=== PATIENT | female | born 1980 | race Asian ===

== ENCOUNTER 2019-04-13 19:34 | Emergency (ER) | payer OTHER ==
[~2019-04-13] VITALS: Ht 162.6 cm; Wt 84.4 kg
[~2019-04-13 19:34] MED LIST: ACET-655 PO; ACET7.5T70 PO; ALPR0.5T24 PO; BD INSULIN0.5 MG/31 XX; FLUC150T PO; FLUT0.05 NAS; INSU100P SC; LANTUS SOLOSTAR SC; LANTUS100 MG/ML SC; LEVAQUIN500 MG OR; LISI5TAB10 PO; METO25TA4 OR; NOVOFINE32 GX6MM SC; NOVOLOG100 MG/ML SC; NYST100010 EX; ONE TOUCH ULTRA; ONE TOUCH ULTRA TEST; PEPCID40 MG PO; PRAVACHOL20 MG PO; TRIAMCINOLON0.51 TOP; [UNRECOGNIZED DRUG - SUPPLY]
[2019-04-13 19:44] VITALS: TEMP 98.6
[2019-04-13 21:04] LABS: PLATELET COUNT 401 K/uL (152-353)
[2019-04-13 21:09] LABS: POTASSIUM 3.7 mmol/L (3.6-5.2); SODIUM 135 mmol/L (136-145)
[2019-04-13 21:18] LABS: PARTIAL THROMBOPLASTIN TIME 23.6 SECONDS (24.5-33.6)
[2019-04-13 22:31] VITALS: BP 152/89
== END 2019-04-13 22:32 | disposition home or self-care (01) ==
LOC: ED 19:34
PROVIDERS: Family Medicine
DX: R07.89 Other chest pain (principal); E11.65 Type 2 diabetes mellitus with hyperglycemia; I10 Essential (primary) hypertension; F17.210 Nicotine dependence, cigarettes, uncomplicated
CPT/HCPCS: 36415; 80053; 80307; 81000; 81025; 82550; 84484; 85027; 85379; 85610; 85730; 93005; 96372; 99283; J1815

== ENCOUNTER 2019-12-21 18:42 | Emergency (ER) | payer OTHER ==
[~2019-12-21] VITALS: Ht 162.6 cm; Wt 81.6 kg
[2019-12-21 20:00] VITALS: BP 148/87; TEMP 98.7
== END 2019-12-21 20:00 | disposition home or self-care (01) ==
LOC: ED 18:42
DX: S90.32XA Contusion of left foot, initial encounter (principal); W20.8XXA Other cause of strike by thrown, projected or falling object, initial encounter; Y92.89 Other specified places as the place of occurrence of the external cause
CPT/HCPCS: 99283

== ENCOUNTER 2019-12-23 13:43 | Emergency (ER) | payer OTHER ==
[~2019-12-23] VITALS: Ht 162.6 cm; Wt 81.6 kg
[2019-12-23 14:10] VITALS: TEMP 98
[2019-12-23 15:44] VITALS: BP 142/97
== END 2019-12-23 15:44 | disposition home or self-care (01) ==
LOC: ED 13:43
DX: M10.9 Gout, unspecified (principal)
CPT/HCPCS: 96372; 99283; J1885

== ENCOUNTER 2019-12-27 22:52 | Emergency (ER) | payer OTHER ==
[~2019-12-27] VITALS: Ht 165.1 cm; Wt 83.9 kg
[2019-12-27 23:34] LABS: PLATELET COUNT 426 K/uL (152-353)
[2019-12-27 23:42] LABS: POTASSIUM 3.9 mmol/L (3.6-5.2)
[2019-12-28 01:25] VITALS: BP 133/66; TEMP 98.2
== END 2019-12-28 01:25 | disposition home or self-care (01) ==
LOC: ED 22:52
PROVIDERS: Emergency Medicine Emergency Medical Services
DX: L03.116 Cellulitis of left lower limb (principal); I10 Essential (primary) hypertension; F17.210 Nicotine dependence, cigarettes, uncomplicated
CPT/HCPCS: 36415; 80053; 84550; 85027; 96360; 96375; 99284; J1885; J2405

== ENCOUNTER 2020-05-06 13:15 | Emergency (ER) | payer OTHER ==
[~2020-05-06] VITALS: Ht 162.6 cm; Wt 76.2 kg
[2020-05-06 13:25] VITALS: TEMP 98.6
[2020-05-06 17:40] VITALS: BP 148/85
== END 2020-05-06 17:40 | disposition home or self-care (01) ==
LOC: ED 13:15
DX: M65.28 Calcific tendinitis, other site (principal)
CPT/HCPCS: 96372; 99283; J1885

== ENCOUNTER 2020-10-28 11:44 | Emergency (ER) | payer OTHER ==
[~2020-10-28] VITALS: Ht 162.6 cm; Wt 76.2 kg
[2020-10-28 11:52] VITALS: BP 150/96; TEMP 97.5
== END 2020-10-28 12:38 | disposition home or self-care (01) ==
LOC: ED 11:44
DX: I10 Essential (primary) hypertension (principal); F17.210 Nicotine dependence, cigarettes, uncomplicated
CPT/HCPCS: 99282